=== PATIENT | female | born 1955 | race Caucasian/White ===

== ENCOUNTER → 2016-11-11 | Outpatient (CLI) | payer BC ==
--- NOTE | 2016-11-11 12:03 | KCIC ---
PROCEDURE Two-view chest. HISTORY Chest discomfort, tightness of the chest for 2 weeks, fever, lightheaded COMPARISON None FINDINGS Two views of the chest are submitted. There is no infiltrate, pleural fluid, pneumothorax. Heart size is within normal limits. There is atherosclerotic calcification of the aortic arch, somewhat tortuous thoracic aorta. IMPRESSION 1. There is no radiographic evidence of acute cardiopulmonary disease. Electronically signed by: Cristofer Shirley MD (November 11, 2016 12:02:14)
== END | disposition home or self-care (01) ==
LOC: KCIC 11:27
PROVIDERS: ATTEND Family Medicine
DX: R07.89 Other chest pain (principal)
CPT/HCPCS: 71020